=== PATIENT | female | born 1940 | race Caucasian/White ===

== ENCOUNTER 2019-04-07 11:02 | Emergency (ER) | payer MEDICARE ==
[2019-04-07 11:24] VITALS: BP 110/56
--- NOTE | 2019-04-07 11:26 | UC ---
Back Pain HPI - HPI Summary HPI Summary: 79 yo female presents, accompanied by , with low back pain. Pt tells me that this morning she was lifting a large flower pot and felt a "crunch" in her lower back with immediate pain to the area. She took tylenol and felt a little better. States that moving makes her pain worse. She is able to ambulate. Denies radiation of pain, numbness, tingling, dysuria, saddle anesthesia, or loss of bowel/bladder control. - History of Current Complaint Chief Complaint: UCBackPain Stated Complaint: BACK INJURY Time Seen by Provider: 04/07/19 11:25 Hx Obtained From: Patient Onset/Duration: Sudden Onset Severity Initially: Severe Severity Currently: Moderate Pain Intensity: 5 Pain Scale Used: 0-10 Numeric - Allergies/Home Medications Allergies/Adverse Reactions: Allergies Allergy/AdvReac Type Severity Reaction Status Date / Time ibuprofen Allergy Eyes Verified 04/07/19 11:24 Itchy/Swollen/Red/Watery PMH/Surg Hx/FS Hx/Imm Hx Psychological History: Anxiety - Surgical History Surgical History: Yes Surgery Procedure, Year, and Place: 1969 ECTOPIC . . 2 X D+C - Family History Known Family History: Positive: Non-Contributory - Social History Occupation: Retired Lives: With Family Alcohol Use: Daily Substance Use Type: None Smoking Status (MU): Never Smoked Tobacco Review of Systems All Other Systems Reviewed And Are Negative: No Constitutional: Positive: Negative Respiratory: Positive: Negative Cardiovascular: Positive: Negative Neurovascular: Positive: Negative Musculoskeletal: Positive: Other: - Back pain Neurological: Positive: Negative Psychological: Positive: Negative Physical Exam - Summary Physical Exam Summary: GENERAL: NAD. WDWN. No pain distress. SKIN: No rashes, sores, lesions, or open wounds. NECK: Supple. FROM. Nontender. No lymphadenopathy. CHEST: CTAB. No r/r/w. No accessory muscle use. Breathing comfortably and in no distress. CV: RRR. Pulses intact. Cap refill <2seconds MSK: TTP over lumbar paraspinal muscles and at ~L3 vertebrae. Pain with flexion and extension of spine. Negative SLR b/l. Strength 5/5 B/L LEs including dorsiflexion and plantar flexion. FROM B/L LEs. No edema. NEURO: Alert. Sensations intact B/L LEs L3-S1. Reflexes intact PSYCH: Age appropriate behavior. Triage Information Reviewed: Yes Vital Signs: Initial Vital Signs Temp 98.7 F 04/07/19 11:18 Pulse 60 04/07/19 11:18 Resp 18 04/07/19 11:18 BP 110/56 04/07/19 11:18 Pulse Ox 99 04/07/19 11:18 Vital Signs Reviewed: Yes Diagnostics - Radiology Lumbar Radiology Interpretation Completed By: Radiologist Summary of Radiographic Findings: IMPRESSION: #. Mild anterior column compression fracture involving the superior endplate of L2 which may be acute given suggestion of interruption of the subchondral bone anteriorly on the lateral view. No additional vertebral fractures evident. #. Predisposing osteopenia as documented on the December 11, 2014 DEXA scan. Back Pain Course/Dx - Course Course Of Treatment: XR as above. Suspect acute compression fracture. Pt is able to ambulate with mild discomfort s/p tylenol and has no red flag signs. Advised to rest, avoid lifting, and apply ice/heat to the area. May continue tylenol as directed. Will rx for lidoderm patch to use during the day and norco for use if severe pain mostly at bedtime - Differential Dx/Diagnosis Provider Diagnosis: Vertebral compression fracture Discharge ED - Sign-Out/Discharge Documenting (check all that apply): Patient Departure All imaging exams completed and their final reports reviewed: Yes - Discharge Plan Condition: Stable Disposition: HOME Prescriptions: HYDROcodone/ACETAMIN 5-325 MG* [[place] 5-325 TAB*] 1 tab PO BEDTIME PRN #6 tab MDD 1 PRN Reason: Pain - Severe Lidocaine PATCH 5%* [Lidoderm 5% Patch*] 1 patch TRANSDERM DAILY #10 patch Patient Education Materials: Vertebral Compression Fracture (ED) Referrals: Isra Riggins MD [Primary Care Provider] - 1 Week Additional Instructions: If you develop a fever, shortness of breath, chest pain, new or worsening symptoms - please call your PCP or go to the ED immediately. 1) Rest and apply ice/heat to your area of pain 2) May continue taking tylenol as directed 3) I recommend that you avoid lifting for at least 1 week 4) Please follow up with your primary doctor in 1-2 weeks for a recheck of your symptoms - Billing Disposition and Condition Condition: STABLE Disposition: Home
== END 2019-04-07 12:26 | disposition home or self-care (01) ==
LOC: UCEAST 11:02
DX: S32.028A Other fracture of second lumbar vertebra, initial encounter for closed fracture (principal); Z88.8 Allergy status to other drugs, medicaments and biological substances; X50.0XXA Overexertion from strenuous movement or load, initial encounter; Y93.89 Activity, other specified; Y92.9 Unspecified place or not applicable
CPT/HCPCS: 72110; 99212; G0463

== ENCOUNTER 2019-04-21 11:28 | Emergency (ER) | payer MEDICARE ==
--- NOTE | 2019-04-21 11:35 | UC ---
Skin Complaint HPI - HPI Summary HPI Summary: 79 yo female presents with tick bite. She tells me that this morning she noticed a tick to her lower back. She removed it and it was not engorged. States it was not there >24 hours. She has doxycycline at home as her and her live in a tick infested area. She took 200mg of doxycycline prior to arrival. She is here today with concerns that the full tick was/wasn't removed from her skin. She currently has no symptoms - History of Current Complaint Time Seen by Provider: 04/21/19 11:35 Stated Complaint: TICK BITE Hx Obtained From: Patient - Allergy/Home Medications Allergies/Adverse Reactions: Allergies Allergy/AdvReac Type Severity Reaction Status Date / Time ibuprofen Allergy Eyes Verified 04/21/19 11:39 Itchy/Swollen/Red/Watery Home Medications: Home Medications ALPRAZolam TAB* [Xanax TAB*] 0.5 mg PO BEDTIME PRN 04/21/19 [History Confirmed 04/21/19] DOXYcycline CAP(*) [DOXYcycline 100MG CAP(*)] 200 mg PO ONCE PRN 04/21/19 [ History Confirmed 04/21/19] PMH/Surg Hx/FS Hx/Imm Hx Psychological History: Anxiety - Surgical History Surgical History: Yes Surgery Procedure, Year, and Place: 1969 ECTOPIC . . 2 X D+C - Family History Known Family History: Positive: Non-Contributory - Social History Occupation: Retired Lives: With Family Alcohol Use: Daily Substance Use Type: None Smoking Status (MU): Never Smoked Tobacco Review of Systems All Other Systems Reviewed And Are Negative: No Constitutional: Positive: Negative Skin: Positive: Other - Tick bite Respiratory: Positive: Negative Cardiovascular: Positive: Negative Neurological: Positive: Negative Psychological: Positive: Negative Physical Exam - Summary Physical Exam Summary: GENERAL: NAD. WDWN. No pain distress. SKIN: Lower back: there is a 7mm diameter of mild erythema and edema with central 1mm area of superficial skin loss. No streaking, bleeding, or drainage. NECK: Supple. Nontender. No lymphadenopathy. CHEST: No accessory muscle use. Breathing comfortably and in no distress. CV: Pulses intact. Cap refill <2seconds NEURO: Alert. PSYCH: Age appropriate behavior. Triage Information Reviewed: Yes Vital Signs: Vital Signs: Temp Pulse Resp BP Pulse Ox 97.6 F 70 16 114/57 100 04/21/19 11:35 04/21/19 11:35 04/21/19 11:35 04/21/19 11:35 04/21/19 11:35 Vital Signs Reviewed: Yes Course/Dx - Course Course Of Treatment: Possible small piece of tick embedded within the skin of lower back. Educated pt that this will not cause any negative effects and the skin will likely push it out in time. - Diagnoses Provider Diagnosis: Tick bite Discharge ED - Sign-Out/Discharge Documenting (check all that apply): Patient Departure All imaging exams completed and their final reports reviewed: No Studies - Discharge Plan Condition: Stable Disposition: HOME Patient Education Materials: Lyme Disease (ED), Tick Bite (ED) Referrals: Isra Riggins MD [Primary Care Provider] - Additional Instructions: TICK BITE: You have been bitten by a tick. Once the tick is removed, these "bites" usually cause no problems. Tick fever, tick paralysis, [place] Spotted fever, and Lyme disease are uncommon -- but you should mention this tick bite to your doctor if you develop unusual symptoms in the next several weeks. If you develop any of the following, please see your physician promptly: (1) Fever, chills, or generalized malaise associated with a headache. (2) A red round area at the site of the bite (or elsewhere) (3) Joint pain, joint swelling or generalized weakness. (4) Redness, swelling, or drainage at the site of the bite. Ticks do not have a typical "head" attached to their body. There are mouth parts sticking out which they use to feed. If there are mouth parts left behind in the wound there is NO increased risk of Lyme infection or disease transmission. If mouth parts remain after tick removal, the best thing to do is apply warm soaks to the area 3-4 times per day to encourage the skin to expel the foreign material. WHEN A TICK IS NOT ENGORGED AND HAS BEEN ON LESS THAN 24 HOURS - THE RISK FOR LYME IS NEGLIGIBLE. YOU CAN REMOVE THE TICK AND OBSERVE THE AREA ON YOUR OWN. - Billing Disposition and Condition Condition: STABLE Disposition: Home
[2019-04-21 11:39] VITALS: BP 114/57
== END 2019-04-21 11:50 | disposition home or self-care (01) ==
LOC: UCEAST 11:28
DX: S30.860A Insect bite (nonvenomous) of lower back and pelvis, initial encounter (principal); F41.9 Anxiety disorder, unspecified; Z88.8 Allergy status to other drugs, medicaments and biological substances; Z79.899 Other long term (current) drug therapy; W57.XXXA Bitten or stung by nonvenomous insect and other nonvenomous arthropods, initial encounter; Y92.9 Unspecified place or not applicable
CPT/HCPCS: 99211; G0463